=== PATIENT | male | born 1950 | race Caucasian/White ===

== ENCOUNTER 2020-05-14 14:44 | Inpatient (IN) | payer OTHER ==
[2020-05-14 16:25] LABS: BASO % 0.2 % (0-2.0); EOS % 0.1 % (0-4.5); HEMATOCRIT 19.1 % (35.4-49); LYMPH % 5.2 % (8-40); MCH 28.3 pg (25.7-33.7); MCHC 33.6 g/dl (32.0-35.9); MEAN CELL VOLUME 84.2 fl (80-96); MEAN PLT VOLUME 6.9 fl (7.5-11.1); NEUT % 89.5 % (42.8-82.8); PLATELET COUNT 249 K/MM3 (134-434); RBC 2.27 M/mm3 (4.00-5.60); WHITE BLOOD COUNT 8.9 K/mm3 (4.0-10.0)
[2020-05-14 16:31] LABS: HEMOGLOBIN 6.4 GM/dL (11.7-16.9); INR 1.14 (0.83-1.09)
[2020-05-14 16:34] LABS: ACTIVATED PTT 26.7 SECONDS (25.2-36.5)
[2020-05-14 16:36] LABS: VENOUS BASE EXCESS -1.4 mmol/L (-2-2); VENOUS O2 SATURATION 41.7 % (70-80); VENOUS PH 7.348 (7.310-7.410)
[2020-05-14 16:50] LABS: CALCIUM 8.6 mg/dL (8.5-10.1)
[2020-05-14 16:51] LABS: ALBUMIN 3.2 g/dl (3.4-5.0); BLOOD UREA NITROGEN 41.2 mg/dL (7-18); CO2 26 mmol/L (21-32); GLUCOSE,RANDOM 115 mg/dL (74-106)
[2020-05-14 16:52] LABS: ANION GAP 6 MMOL/L (8-16); CHLORIDE 112 mmol/L (98-107); POTASSIUM 4.2 mmol/L (3.5-5.1); SODIUM 145 mmol/L (136-145)
[2020-05-14 16:53] LABS: BILIRUBIN,DIRECT 0.2 mg/dL (0.0-0.2)
[2020-05-14 16:54] LABS: SGOT/AST 19 U/L (15-37); SGPT/ALT 10 U/L (13-61)
[2020-05-14 16:55] LABS: BILIRUBIN,TOTAL 0.6 mg/dL (0.2-1); LDH 288 U/L (87-246); TOT PROT 6.8 g/dl (6.4-8.2)
[2020-05-14 16:57] LABS: ALK PHOS 51 U/L (45-117)
[2020-05-14 20:51] LABS: N-TERMINAL BNP 2432.4 pg/ml (5-125)
[2020-05-14] MEDS ORDERED: VANCOMYCIN 1 GM in D5W (PRE-DOCKED) 1,000 MG/250 ML IVPB SCH (21:45)
[2020-05-14] MEDS: DEXAMETHASONE SOD PHOSPHATE 10 MG/1 ML VIAL IVPUSH SCH (22:05)
[2020-05-14] MEDS: PANTOPRAZOLE SODIUM 40 MG VIAL IVPUSH SCH (22:06)
[2020-05-14] MEDS: VANCOMYCIN 1 GM in D5W (PRE-DOCKED) 1,000 MG/250 ML IVPB SCH ×2 (22:06→22:50)
[2020-05-14] MEDS: MUPIROCIN 2% TOPICAL OINTMENT FOR DECOLONIZATION NS SCH (22:51)
[2020-05-14] MEDS: CHLORHEXIDINE GLUCONATE 4% CLEANSER FOR DECOLONIZATION TP SCH (22:51)
[2020-05-14 23:42] LABS: RETICULOCYTES 3.86 % (0.5-1.5)
[2020-05-15] MEDS ORDERED: FUROSEMIDE 40 MG/4 ML INJECTABLE VIAL IVPUSH ONE (00:12)
[2020-05-15] MEDS ORDERED: PIPERACILLIN/TAZOB 3.375 GM 3.375 GM in DEXTROSE 5%-WATER - 50 ML IVPB SCH (02:00)
[2020-05-15] MEDS ORDERED: PIPERACILLIN/TAZOBACTAM 3.375 GM VIAL IVPB ONE ×3 (02:12→16:29)
[2020-05-15] MEDS ORDERED: DEXTROSE 5%-WATER - 50 ML IVPB ONE ×3 (02:13→16:29)
[2020-05-15] MEDS: PIPERACILLIN/TAZOB 3.375 GM 3.375 GM in DEXTROSE 5%-WATER - 50 ML IVPB SCH ×3 (02:15→18:31)
[2020-05-15 02:18] LABS: EPI CELLS 11 /uL (0-25.1); HYALINE CASTS 1 /uL (0-3.1); URINE APPEARANCE CLEAR; URINE BACTERIA 73 /uL (0-1359); URINE BILIRUBIN NEGATIVE (NEGATIVE); URINE COLOR YELLOW; URINE GLUCOSE (UA) NEGATIVE (NEGATIVE); URINE KETONE NEGATIVE (NEGATIVE); URINE LEUK ESTERASE TRACE (NEGATIVE); URINE NITRITE NEGATIVE (NEGATIVE); URINE PROTEIN NEGATIVE (NEGATIVE); URINE RBC 6 /uL (0-23.9); URINE UROBILINOGEN 0.2 mg/dL (0.2-1.0); URINE WBC 23 /uL (0-25.8)
[2020-05-15 02:42] LABS: IRON SERUM 24 ug/dL (50-175); TOTAL IRON BINDING CAPACITY 303 ug/dL (250-450)
[2020-05-15 06:39] LABS: BASO % 0.1 % (0-2.0); HEMATOCRIT 24.8 % (35.4-49); HEMOGLOBIN 8.4 GM/dL (11.7-16.9); LYMPH % 4.2 % (8-40); MCH 28.6 pg (25.7-33.7); MEAN CELL VOLUME 84.3 fl (80-96); MEAN PLT VOLUME 7.8 fl (7.5-11.1); MONO % 4.5 % (3.8-10.2); NEUT % 91.2 % (42.8-82.8); PLATELET COUNT 202 K/MM3 (134-434); RBC 2.95 M/mm3 (4.00-5.60); RDW 14.9 % (11.9-15.9); WHITE BLOOD COUNT 8.8 K/mm3 (4.0-10.0)
[2020-05-15 06:44] LABS: INR 1.13 (0.83-1.09); PROTHROMBIN TIME (PATIENT) 13.8 SEC (9.7-13.0)
[2020-05-15 06:46] LABS: ACTIVATED PTT 24.1 SECONDS (25.2-36.5)
[2020-05-15 06:59] LABS: POTASSIUM 4.4 mmol/L (3.5-5.1)
[2020-05-15 07:02] LABS: BLOOD UREA NITROGEN 40.6 mg/dL (7-18); MAGNESIUM 2.4 mg/dL (1.8-2.4)
[2020-05-15 07:05] LABS: PHOSPHOROUS 4.2 mg/dL (2.5-4.9)
[2020-05-15 07:06] LABS: CREATININE 1.2 mg/dL (0.55-1.3)
[2020-05-15 07:07] LABS: BILIRUBIN,TOTAL 0.8 mg/dL (0.2-1); TOT PROT 6.6 g/dl (6.4-8.2)
[2020-05-15 08:28] LABS: ANISOCYTOSIS 2+; MACROCYTOSIS 0; PLATELET ESTIMATE NORMAL
[2020-05-15] MEDS: DEXAMETHASONE SOD PHOSPHATE 10 MG/1 ML VIAL IVPUSH SCH (09:56)
[2020-05-15] MEDS: PANTOPRAZOLE SODIUM 40 MG VIAL IVPUSH SCH ×2 (09:56→21:46)
[2020-05-15] MEDS: MUPIROCIN 2% TOPICAL OINTMENT FOR DECOLONIZATION NS SCH ×2 (09:56→21:46)
[2020-05-15 16:05] LABS: BASO % 0.4 % (0-2.0); HEMATOCRIT 24.2 % (35.4-49); HEMOGLOBIN 8.1 GM/dL (11.7-16.9); LYMPH % 2.9 % (8-40); MCH 27.9 pg (25.7-33.7); MCHC 33.5 g/dl (32.0-35.9); MEAN CELL VOLUME 83.2 fl (80-96); MONO % 3.6 % (3.8-10.2); NEUT % 93.1 % (42.8-82.8); RBC 2.91 M/mm3 (4.00-5.60); RDW 15.1 % (11.9-15.9); WHITE BLOOD COUNT 11.5 K/mm3 (4.0-10.0)
[2020-05-15 17:23] LABS: ANISOCYTOSIS 1+; MACROCYTOSIS 1+; PLATELET ESTIMATE DECREASED
[2020-05-15] MEDS: CHLORHEXIDINE GLUCONATE 4% CLEANSER FOR DECOLONIZATION TP SCH (21:47)
[2020-05-16] MEDS ORDERED: PIPERACILLIN/TAZOBACTAM 3.375 GM VIAL IVPB ONE ×4 (02:14→20:39)
[2020-05-16] MEDS ORDERED: DEXTROSE 5%-WATER - 50 ML IVPB ONE ×4 (02:15→20:39)
[2020-05-16] MEDS: PIPERACILLIN/TAZOB 3.375 GM 3.375 GM in DEXTROSE 5%-WATER - 50 ML IVPB SCH ×3 (02:15→18:10)
[2020-05-16 07:19] LABS: BASO % 0.1 % (0-2.0); EOS % 0.1 % (0-4.5); HEMATOCRIT 21.8 % (35.4-49); HEMOGLOBIN 7.5 GM/dL (11.7-16.9); LYMPH % 5.4 % (8-40); MCHC 34.3 g/dl (32.0-35.9); MEAN CELL VOLUME 84.6 fl (80-96); MEAN PLT VOLUME 6.8 fl (7.5-11.1); NEUT % 86.4 % (42.8-82.8); PLATELET COUNT 249 K/MM3 (134-434); RBC 2.57 M/mm3 (4.00-5.60); RDW 15.4 % (11.9-15.9); WHITE BLOOD COUNT 10.7 K/mm3 (4.0-10.0)
[2020-05-16 07:30] LABS: INR 1.1 (0.83-1.09); PROTHROMBIN TIME (PATIENT) 13.3 SEC (9.7-13.0)
[2020-05-16 07:33] LABS: ACTIVATED PTT 23.4 SECONDS (25.2-36.5)
[2020-05-16 07:41] LABS: POTASSIUM 4.3 mmol/L (3.5-5.1)
[2020-05-16 07:46] LABS: BLOOD UREA NITROGEN 48.9 mg/dL (7-18); CALCIUM 8.9 mg/dL (8.5-10.1); MAGNESIUM 2.4 mg/dL (1.8-2.4)
[2020-05-16 07:50] LABS: CREATININE 1.2 mg/dL (0.55-1.3)
[2020-05-16 07:51] LABS: BILIRUBIN,TOTAL 0.8 mg/dL (0.2-1); PHOSPHOROUS 4.5 mg/dL (2.5-4.9); TOT PROT 6.4 g/dl (6.4-8.2)
[2020-05-16] MEDS ORDERED: PT OWN MED DRAWER 7, Y5N ONE (08:08)
[2020-05-16] MEDS: FUROSEMIDE 40 MG/4 ML INJECTABLE VIAL IVPUSH SCH (09:10)
[2020-05-16] MEDS: MUPIROCIN 2% TOPICAL OINTMENT FOR DECOLONIZATION NS SCH ×2 (09:10→21:00)
[2020-05-16] MEDS: PANTOPRAZOLE SODIUM 40 MG VIAL IVPUSH SCH ×2 (09:10→21:00)
[2020-05-16 12:58] LABS: BF WBC & OTHER NUCLEATED CELLS 4072 /mm3
[2020-05-16 15:36] VITALS: BMI 43.0
[2020-05-16 15:54] LABS: BASO % 0.3 % (0-2.0); EOS % 1.7 % (0-4.5); HEMATOCRIT 22.8 % (35.4-49); HEMOGLOBIN 7.4 GM/dL (11.7-16.9); LYMPH % 6.8 % (8-40); MCH 28.4 pg (25.7-33.7); MCHC 32.5 g/dl (32.0-35.9); MEAN CELL VOLUME 87.5 fl (80-96); MEAN PLT VOLUME 7.4 fl (7.5-11.1); MONO % 8.5 % (3.8-10.2); NEUT % 82.7 % (42.8-82.8); PLATELET COUNT 240 K/MM3 (134-434); RDW 15.6 % (11.9-15.9); WHITE BLOOD COUNT 9.6 K/mm3 (4.0-10.0)
[2020-05-16] MEDS: CHLORHEXIDINE GLUCONATE 4% CLEANSER FOR DECOLONIZATION TP SCH (21:00)
[2020-05-17] MEDS: PIPERACILLIN/TAZOB 3.375 GM 3.375 GM in DEXTROSE 5%-WATER - 50 ML IVPB SCH ×3 (01:28→17:46)
[2020-05-17 07:16] LABS: BASO % 0.2 % (0-2.0); EOS % 4.3 % (0-4.5); HEMATOCRIT 23.5 % (35.4-49); HEMOGLOBIN 7.7 GM/dL (11.7-16.9); LYMPH % 6.8 % (8-40); MCH 28.5 pg (25.7-33.7); MCHC 32.9 g/dl (32.0-35.9); MEAN CELL VOLUME 86.6 fl (80-96); MEAN PLT VOLUME 7.3 fl (7.5-11.1); MONO % 8.8 % (3.8-10.2); NEUT % 79.9 % (42.8-82.8); PLATELET COUNT 228 K/MM3 (134-434); RBC 2.72 M/mm3 (4.00-5.60); RDW 15.8 % (11.9-15.9); WHITE BLOOD COUNT 8.8 K/mm3 (4.0-10.0)
[2020-05-17 07:36] LABS: POTASSIUM 3.7 mmol/L (3.5-5.1)
[2020-05-17 07:56] LABS: ALBUMIN 2.8 g/dl (3.4-5.0); BLOOD UREA NITROGEN 57.1 mg/dL (7-18); CALCIUM 8.5 mg/dL (8.5-10.1); MAGNESIUM 2.3 mg/dL (1.8-2.4)
[2020-05-17 07:59] LABS: PHOSPHOROUS 3.6 mg/dL (2.5-4.9)
[2020-05-17 08:00] LABS: CREATININE 1.4 mg/dL (0.55-1.3)
[2020-05-17 08:02] LABS: BILIRUBIN,TOTAL 0.9 mg/dL (0.2-1)
[2020-05-17] MEDS ORDERED: LACTATED RINGERS SOLUTION 1000 ML INFUS.BAG IV ONE (08:07)
[2020-05-17] MEDS ORDERED: DEXTROSE 5%-WATER - 50 ML IVPB ONE ×2 (09:35→17:44)
[2020-05-17] MEDS ORDERED: PIPERACILLIN/TAZOBACTAM 3.375 GM VIAL IVPB ONE ×2 (09:35→17:44)
[2020-05-17] MEDS ORDERED: PT OWN MED DRAWER 7, Y5N ONE (09:35)
[2020-05-17] MEDS: PANTOPRAZOLE SODIUM 40 MG VIAL IVPUSH SCH (09:43)
[2020-05-17] MEDS: FENOFIBRIC ACID 45 MG CAP PO SCH (09:44)
[2020-05-17] MEDS: MUPIROCIN 2% TOPICAL OINTMENT FOR DECOLONIZATION NS SCH ×2 (10:27→23:42)
[2020-05-17] MEDS: FUROSEMIDE 40 MG/4 ML INJECTABLE VIAL IVPUSH SCH (13:34)
[2020-05-17] MEDS ORDERED: NOREPINEPHRINE BITARTRATE 16,000 MCG in SODIUM CHLORIDE 484 ML IV SCH (13:45)
[2020-05-17] MEDS ORDERED: NOREPINEPHRINE BITARTRATE 4 MG/4 ML ML IV ONE (14:02)
[2020-05-17 14:07] LABS: BODY FLUID ALBUMIN 2.2 g/dL (Not Estab.)
[2020-05-17] MEDS: methylPREDNISolone NA SUCC 40 MG/1 ML VIAL IVPUSH SCH ×2 (14:26→23:07)
[2020-05-17 14:42] LABS: ALLENS TEST POSITIVE; ARTERIAL BLD GAS O2 SATURATION 96.6 mmHg (95-98); ARTERIAL BLOOD GAS BASE EXCESS -3.2 mmol/L (-2-2); ARTERIAL BLOOD GAS PO2 87.3 mmHg (80-100); ARTERIAL BLOOD GAS pH 7.381 (7.350-7.450)
[2020-05-17 14:43] LABS: VENT MODE PCV
[2020-05-17] MEDS ORDERED: MIDAZOLAM HCL 2 MG/2 ML SINGLE DOSE VIAL IVPUSH ONE (15:33)
[2020-05-17] MEDS ORDERED: MIDAZOLAM HCL 2 MG/2 ML SINGLE DOSE VIAL ONE (15:44)
[2020-05-17] MEDS: NOREPINEPHRINE BITARTRATE 4,000 MCG in DEXTROSE 5%-WATER - 496 ML IV SCH (16:30)
[2020-05-17 19:16] LABS: BF WBC & OTHER NUCLEATED CELLS 4429 /mm3
[2020-05-17 20:37] LABS: BASO % 0.1 % (0-2.0); HEMATOCRIT 26.1 % (35.4-49); HEMOGLOBIN 8.6 GM/dL (11.7-16.9); MCH 28.7 pg (25.7-33.7); MCHC 32.9 g/dl (32.0-35.9); MEAN CELL VOLUME 87.2 fl (80-96); MEAN PLT VOLUME 7.6 fl (7.5-11.1); MONO % 3.4 % (3.8-10.2); NEUT % 94.5 % (42.8-82.8); PLATELET COUNT 243 K/MM3 (134-434); RDW 15.6 % (11.9-15.9)
[2020-05-17 21:10] LABS: BODY FLUID MACROPHAGES 2 %; BODY FLUID MONOCYTE 10 %; BODYL FLD EOSINOPHIL 5 %
[2020-05-17 21:27] LABS: ANISOCYTOSIS 1+; OVALOCYTE 1+; PLATELET ESTIMATE ADEQUATE
[2020-05-17] MEDS: CHLORHEXIDINE GLUCONATE 4% CLEANSER FOR DECOLONIZATION TP SCH (23:42)
[2020-05-18] MEDS ORDERED: PIPERACILLIN/TAZOBACTAM 3.375 GM VIAL IVPB ONE ×2 (03:22→09:00)
[2020-05-18] MEDS ORDERED: DEXTROSE 5%-WATER - 50 ML IVPB ONE ×2 (03:23→09:00)
[2020-05-18] MEDS: PIPERACILLIN/TAZOB 3.375 GM 3.375 GM in DEXTROSE 5%-WATER - 50 ML IVPB SCH ×2 (03:25→09:05)
[2020-05-18] MEDS: methylPREDNISolone NA SUCC 40 MG/1 ML VIAL IVPUSH SCH ×4 (04:22→21:34)
[2020-05-18 07:13] LABS: BASO % 0.1 % (0-2.0); HEMOGLOBIN 8.3 GM/dL (11.7-16.9); LYMPH % 3.4 % (8-40); MCH 29.7 pg (25.7-33.7); MCHC 34.6 g/dl (32.0-35.9); MEAN CELL VOLUME 85.7 fl (80-96); MEAN PLT VOLUME 7.5 fl (7.5-11.1); MONO % 2.8 % (3.8-10.2); NEUT % 93.7 % (42.8-82.8); PLATELET COUNT 258 K/MM3 (134-434); RDW 15.4 % (11.9-15.9)
[2020-05-18 07:18] LABS: INR 1.09 (0.83-1.09); PROTHROMBIN TIME (PATIENT) 13.2 SEC (9.7-13.0)
[2020-05-18 07:19] LABS: ACTIVATED PTT 23.5 SECONDS (25.2-36.5)
[2020-05-18 07:41] LABS: POTASSIUM 4.6 mmol/L (3.5-5.1)
[2020-05-18 07:43] LABS: ALBUMIN 2.7 g/dl (3.4-5.0); CALCIUM 8.4 mg/dL (8.5-10.1)
[2020-05-18 07:44] LABS: BLOOD UREA NITROGEN 69.6 mg/dL (7-18); MAGNESIUM 2.6 mg/dL (1.8-2.4)
[2020-05-18 07:47] LABS: CREATININE 1.8 mg/dL (0.55-1.3); PHOSPHOROUS 5.2 mg/dL (2.5-4.9)
[2020-05-18 07:48] LABS: BILIRUBIN,TOTAL 0.9 mg/dL (0.2-1); TOT PROT 6.3 g/dl (6.4-8.2)
[2020-05-18] MEDS ORDERED: PT OWN MED DRAWER 7, Y5N ONE (09:00)
[2020-05-18] MEDS: MUPIROCIN 2% TOPICAL OINTMENT FOR DECOLONIZATION NS SCH ×2 (09:04→21:40)
[2020-05-18] MEDS: PANTOPRAZOLE SODIUM 40 MG VIAL IVPUSH SCH (09:05)
[2020-05-18] MEDS: FENOFIBRIC ACID 45 MG CAP PO SCH (09:05)
[2020-05-18 09:24] LABS: ANISOCYTOSIS 0; MACROCYTOSIS 0; PLATELET ESTIMATE NORMAL
[2020-05-18] MEDS ORDERED: LACTATED RINGERS SOLUTION 1,000 ML/1,000 ML INFUS.BAG IV SCH (12:30)
[2020-05-18] MEDS: NOREPINEPHRINE BITARTRATE 4,000 MCG in DEXTROSE 5%-WATER - 496 ML IV SCH (14:36)
[2020-05-18] MEDS ORDERED: AMPICILLIN NA/SULBACTAM NA 1.5 GM VIAL ONE (17:37)
[2020-05-18] MEDS ORDERED: SODIUM CHLORIDE 100 ML IVPB ONE (17:38)
[2020-05-18] MEDS: AMPICILLIN NA/SULBACTAM NA 1.5 GM in SODIUM CHLORIDE 100 ML IVPB SCH (17:54)
[2020-05-18] MEDS: CHLORHEXIDINE GLUCONATE 4% CLEANSER FOR DECOLONIZATION TP SCH (21:40)
[2020-05-19] MEDS ORDERED: LACTATED RINGERS SOLUTION 1,000 ML/1,000 ML INFUS.BAG IV SCH
[2020-05-19] MEDS ORDERED: PT OWN MED DRAWER 7, Y5N ONE ×3 (03:33→14:51)
[2020-05-19] MEDS ORDERED: AMPICILLIN NA/SULBACTAM NA 1.5 GM VIAL ONE (03:42)
[2020-05-19] MEDS ORDERED: SODIUM CHLORIDE 100 ML IVPB ONE (03:43)
[2020-05-19] MEDS: AMPICILLIN NA/SULBACTAM NA 1.5 GM in SODIUM CHLORIDE 100 ML IVPB SCH (03:44)
[2020-05-19] MEDS: methylPREDNISolone NA SUCC 40 MG/1 ML VIAL IVPUSH SCH ×2 (04:31→09:52)
[2020-05-19 06:51] LABS: BASO % 0.1 % (0-2.0); HEMATOCRIT 21.2 % (35.4-49); HEMOGLOBIN 7.1 GM/dL (11.7-16.9); LYMPH % 2.3 % (8-40); MCH 29.1 pg (25.7-33.7); MCHC 33.6 g/dl (32.0-35.9); MEAN CELL VOLUME 86.5 fl (80-96); MEAN PLT VOLUME 7.4 fl (7.5-11.1); MONO % 4.6 % (3.8-10.2); PLATELET COUNT 231 K/MM3 (134-434); RBC 2.45 M/mm3 (4.00-5.60); RDW 16.1 % (11.9-15.9); WHITE BLOOD COUNT 8.9 K/mm3 (4.0-10.0)
[2020-05-19 07:09] LABS: POTASSIUM 4.3 mmol/L (3.5-5.1)
[2020-05-19 07:15] LABS: ALBUMIN 2.4 g/dl (3.4-5.0); BLOOD UREA NITROGEN 65.3 mg/dL (7-18); CALCIUM 8.5 mg/dL (8.5-10.1); MAGNESIUM 2.5 mg/dL (1.8-2.4)
[2020-05-19 07:17] LABS: CREATININE 1.3 mg/dL (0.55-1.3)
[2020-05-19 07:18] LABS: PHOSPHOROUS 3.8 mg/dL (2.5-4.9)
[2020-05-19 07:19] LABS: BILIRUBIN,TOTAL 0.9 mg/dL (0.2-1); TOT PROT 5.5 g/dl (6.4-8.2)
[2020-05-19] MEDS ORDERED: AMPICILLIN NA/SULBACTAM NA 3 GM in SODIUM CHLORIDE 100 ML IVPB SCH ×2 (09:30→10:00)
[2020-05-19] MEDS: MUPIROCIN 2% TOPICAL OINTMENT FOR DECOLONIZATION NS SCH ×2 (09:52→21:03)
[2020-05-19] MEDS: FENOFIBRIC ACID 45 MG CAP PO SCH (09:52)
[2020-05-19] MEDS: PANTOPRAZOLE SODIUM 40 MG VIAL IVPUSH SCH (09:52)
[2020-05-19] MEDS: AMPICILLIN NA/SULBACTAM NA 3 GM in SODIUM CHLORIDE 100 ML IVPB SCH ×2 (15:49→21:02)
[2020-05-19] MEDS: CHLORHEXIDINE GLUCONATE 4% CLEANSER FOR DECOLONIZATION TP SCH (21:02)
[2020-05-19] MEDS: methylPREDNISolone NA SUCC 125 MG/2 ML VIAL IVPUSH SCH (21:02)
[2020-05-19] MEDS ORDERED: methylPREDNISolone NA SUCC 40 MG/1 ML VIAL IVPUSH SCH (22:00)
[2020-05-20] MEDS ORDERED: amLODIPine BESYLATE 10 MG TABLET (FP) PO SCH (00:45)
[2020-05-20] MEDS: AMPICILLIN NA/SULBACTAM NA 3 GM in SODIUM CHLORIDE 100 ML IVPB SCH ×4 (02:23→22:00)
[2020-05-20 06:54] LABS: POTASSIUM 4.5 mmol/L (3.5-5.1)
[2020-05-20 06:55] LABS: CALCIUM 8.7 mg/dL (8.5-10.1)
[2020-05-20 06:57] LABS: BLOOD UREA NITROGEN 60.4 mg/dL (7-18)
[2020-05-20 07:00] LABS: CREATININE 1.1 mg/dL (0.55-1.3)
[2020-05-20] MEDS ORDERED: PT OWN MED DRAWER 7, Y5N ONE ×2 (09:35→21:58)
[2020-05-20] MEDS: FENOFIBRIC ACID 45 MG CAP PO SCH (10:04)
[2020-05-20] MEDS: methylPREDNISolone NA SUCC 125 MG/2 ML VIAL IVPUSH SCH (10:08)
[2020-05-20] MEDS: PANTOPRAZOLE SODIUM 40 MG VIAL IVPUSH SCH (10:08)
[2020-05-20] MEDS: MUPIROCIN 2% TOPICAL OINTMENT FOR DECOLONIZATION NS SCH ×2 (10:08→22:03)
[2020-05-20 20:29] LABS: HEMATOCRIT 26.7 % (35.4-49); HEMOGLOBIN 8.9 GM/dL (11.7-16.9); MCH 29.1 pg (25.7-33.7); MCHC 33.3 g/dl (32.0-35.9); MEAN CELL VOLUME 87.2 fl (80-96); MEAN PLT VOLUME 7.3 fl (7.5-11.1); PLATELET COUNT 260 K/MM3 (134-434); RBC 3.06 M/mm3 (4.00-5.60); WHITE BLOOD COUNT 10.3 K/mm3 (4.0-10.0)
[2020-05-20] MEDS: CHLORHEXIDINE GLUCONATE 4% CLEANSER FOR DECOLONIZATION TP SCH (22:03)
[2020-05-21 00:06] LABS: BODY FLUID ALBUMIN 2.5 g/dL (Not Estab.)
[2020-05-21] MEDS: AMPICILLIN NA/SULBACTAM NA 3 GM in SODIUM CHLORIDE 100 ML IVPB SCH ×4 (03:05→21:29)
[2020-05-21 07:20] LABS: BASO % 0.1 % (0-2.0); EOS % 0.5 % (0-4.5); HEMATOCRIT 24.9 % (35.4-49); HEMOGLOBIN 8.3 GM/dL (11.7-16.9); LYMPH % 5.5 % (8-40); MCH 29.3 pg (25.7-33.7); MCHC 33.6 g/dl (32.0-35.9); MEAN CELL VOLUME 87.3 fl (80-96); MEAN PLT VOLUME 7.4 fl (7.5-11.1); MONO % 8.3 % (3.8-10.2); NEUT % 85.6 % (42.8-82.8); PLATELET COUNT 236 K/MM3 (134-434); RBC 2.85 M/mm3 (4.00-5.60); RDW 15.8 % (11.9-15.9); WHITE BLOOD COUNT 9.1 K/mm3 (4.0-10.0)
[2020-05-21 07:48] LABS: POTASSIUM 4.1 mmol/L (3.5-5.1)
[2020-05-21 07:59] LABS: ALBUMIN 2.5 g/dl (3.4-5.0); BLOOD UREA NITROGEN 53.2 mg/dL (7-18); CALCIUM 8.5 mg/dL (8.5-10.1)
[2020-05-21 08:00] LABS: MAGNESIUM 2.2 mg/dL (1.8-2.4); PHOSPHOROUS 2.7 mg/dL (2.5-4.9)
[2020-05-21 08:02] LABS: BILIRUBIN,TOTAL 0.8 mg/dL (0.2-1); TOT PROT 5.5 g/dl (6.4-8.2)
[2020-05-21] MEDS: amLODIPine BESYLATE 5 MG TABLET (FP) PO SCH (09:36)
[2020-05-21] MEDS: methylPREDNISolone NA SUCC 125 MG/2 ML VIAL IVPUSH SCH (09:36)
[2020-05-21] MEDS: PANTOPRAZOLE SODIUM 40 MG VIAL IVPUSH SCH (09:36)
[2020-05-21] MEDS: FENOFIBRIC ACID 45 MG CAP PO SCH (09:37)
[2020-05-21] MEDS: MUPIROCIN 2% TOPICAL OINTMENT FOR DECOLONIZATION NS SCH ×2 (09:37→21:44)
[2020-05-21 10:13] LABS: BODY FLUID MONOCYTE 8 %; BODYL FLD EOSINOPHIL 2 %
[2020-05-21] MEDS: ATENOLOL 25 MG TABLET (FP) PO SCH (10:45)
[2020-05-21] MEDS ORDERED: PT OWN MED DRAWER 7, Y5N ONE ×2 (15:55→21:27)
[2020-05-21] MEDS: CHLORHEXIDINE GLUCONATE 4% CLEANSER FOR DECOLONIZATION TP SCH (21:44)
[2020-05-22] MEDS ORDERED: PT OWN MED DRAWER 7, Y5N ONE ×3 (03:15→14:28)
[2020-05-22] MEDS: AMPICILLIN NA/SULBACTAM NA 3 GM in SODIUM CHLORIDE 100 ML IVPB SCH ×4 (03:17→21:20)
[2020-05-22 07:06] LABS: EOS % 0.6 % (0-4.5); HEMATOCRIT 23.6 % (35.4-49); LYMPH % 5.9 % (8-40); MCH 29.3 pg (25.7-33.7); MEAN CELL VOLUME 86.3 fl (80-96); MEAN PLT VOLUME 7.1 fl (7.5-11.1); MONO % 6.8 % (3.8-10.2); NEUT % 86.7 % (42.8-82.8); PLATELET COUNT 235 K/MM3 (134-434); RBC 2.73 M/mm3 (4.00-5.60); RDW 15.5 % (11.9-15.9); WHITE BLOOD COUNT 8.8 K/mm3 (4.0-10.0)
[2020-05-22 07:35] LABS: POTASSIUM 4.3 mmol/L (3.5-5.1)
[2020-05-22 07:37] LABS: BLOOD UREA NITROGEN 48.5 mg/dL (7-18); CALCIUM 8.4 mg/dL (8.5-10.1)
[2020-05-22 07:38] LABS: ALBUMIN 2.5 g/dl (3.4-5.0); MAGNESIUM 2.2 mg/dL (1.8-2.4)
[2020-05-22 07:42] LABS: CREATININE 0.9 mg/dL (0.55-1.3); PHOSPHOROUS 2.8 mg/dL (2.5-4.9); TOT PROT 5.4 g/dl (6.4-8.2)
[2020-05-22] MEDS: FENOFIBRIC ACID 45 MG CAP PO SCH (09:04)
[2020-05-22] MEDS: PANTOPRAZOLE SODIUM 40 MG VIAL IVPUSH SCH (09:05)
[2020-05-22] MEDS: ATENOLOL 25 MG TABLET (FP) PO SCH (09:05)
[2020-05-22] MEDS: amLODIPine BESYLATE 5 MG TABLET (FP) PO SCH (09:05)
[2020-05-22] MEDS: MUPIROCIN 2% TOPICAL OINTMENT FOR DECOLONIZATION NS SCH ×2 (09:07→21:20)
[2020-05-22] MEDS: methylPREDNISolone NA SUCC 125 MG/2 ML VIAL IVPUSH SCH (09:07)
[2020-05-22] MEDS: HEPARIN NA (PORCINE) 5,000 UNITS/ML 1ML VIAL SQ SCH ×2 (15:05→21:20)
[2020-05-22] MEDS: CHLORHEXIDINE GLUCONATE 4% CLEANSER FOR DECOLONIZATION TP SCH (21:21)
[2020-05-23] MEDS ORDERED: PT OWN MED DRAWER 7, Y5N ONE ×6 (01:40→21:27)
[2020-05-23] MEDS: AMPICILLIN NA/SULBACTAM NA 3 GM in SODIUM CHLORIDE 100 ML IVPB SCH ×4 (02:10→21:29)
[2020-05-23] MEDS: HEPARIN NA (PORCINE) 5,000 UNITS/ML 1ML VIAL SQ SCH (06:54)
[2020-05-23 07:24] LABS: BASO % 0.1 % (0-2.0); EOS % 0.7 % (0-4.5); HEMATOCRIT 21.8 % (35.4-49); HEMOGLOBIN 7.5 GM/dL (11.7-16.9); LYMPH % 7.7 % (8-40); MCH 29.8 pg (25.7-33.7); MCHC 34.3 g/dl (32.0-35.9); MEAN CELL VOLUME 86.8 fl (80-96); MONO % 6.5 % (3.8-10.2); PLATELET COUNT 206 K/MM3 (134-434); RBC 2.52 M/mm3 (4.00-5.60); RDW 15.6 % (11.9-15.9); WHITE BLOOD COUNT 8.3 K/mm3 (4.0-10.0)
[2020-05-23 07:38] LABS: POTASSIUM 4.2 mmol/L (3.5-5.1)
[2020-05-23 07:45] LABS: ALBUMIN 2.4 g/dl (3.4-5.0); BLOOD UREA NITROGEN 49.6 mg/dL (7-18); CALCIUM 8.6 mg/dL (8.5-10.1); MAGNESIUM 2.2 mg/dL (1.8-2.4)
[2020-05-23 07:51] LABS: BILIRUBIN,TOTAL 0.7 mg/dL (0.2-1); TOT PROT 5.3 g/dl (6.4-8.2)
[2020-05-23] MEDS: methylPREDNISolone NA SUCC 125 MG/2 ML VIAL IVPUSH SCH (10:07)
[2020-05-23] MEDS: PANTOPRAZOLE SODIUM 40 MG VIAL IVPUSH SCH (10:07)
[2020-05-23] MEDS: MUPIROCIN 2% TOPICAL OINTMENT FOR DECOLONIZATION NS SCH ×2 (10:08→21:32)
[2020-05-23] MEDS: ATENOLOL 25 MG TABLET (FP) PO SCH (10:08)
[2020-05-23] MEDS: FENOFIBRIC ACID 45 MG CAP PO SCH ×2 (14:20→17:42)
[2020-05-23] MEDS: CHLORHEXIDINE GLUCONATE 4% CLEANSER FOR DECOLONIZATION TP SCH (21:32)
[2020-05-24] MEDS ORDERED: PT OWN MED DRAWER 7, Y5N ONE ×3 (02:03→20:49)
[2020-05-24] MEDS: AMPICILLIN NA/SULBACTAM NA 3 GM in SODIUM CHLORIDE 100 ML IVPB SCH ×4 (02:23→21:52)
[2020-05-24] MEDS: FENOFIBRIC ACID 45 MG CAP PO SCH (09:12)
[2020-05-24] MEDS: PANTOPRAZOLE SODIUM 40 MG VIAL IVPUSH SCH (09:12)
[2020-05-24] MEDS: methylPREDNISolone NA SUCC 125 MG/2 ML VIAL IVPUSH SCH (09:12)
[2020-05-24] MEDS: ATENOLOL 25 MG TABLET (FP) PO SCH (10:50)
[2020-05-24] MEDS: CYANOCOBALAMIN 1,000 MCG TABLET (FP) PO SCH (12:07)
[2020-05-24 13:30] LABS: EOS % 0.1 % (0-4.5); HEMATOCRIT 23.4 % (35.4-49); HEMOGLOBIN 7.5 GM/dL (11.7-16.9); LYMPH % 1.6 % (8-40); MCH 28.3 pg (25.7-33.7); MCHC 32.1 g/dl (32.0-35.9); MEAN CELL VOLUME 88.3 fl (80-96); MEAN PLT VOLUME 7.6 fl (7.5-11.1); NEUT % 95.3 % (42.8-82.8); PLATELET COUNT 270 K/MM3 (134-434); RBC 2.65 M/mm3 (4.00-5.60); RDW 16.1 % (11.9-15.9); WHITE BLOOD COUNT 11.8 K/mm3 (4.0-10.0)
[2020-05-24 13:44] LABS: POTASSIUM 4.7 mmol/L (3.5-5.1)
[2020-05-24 13:47] LABS: ALBUMIN 2.6 g/dl (3.4-5.0); BLOOD UREA NITROGEN 47.9 mg/dL (7-18); CALCIUM 8.7 mg/dL (8.5-10.1); MAGNESIUM 2.3 mg/dL (1.8-2.4)
[2020-05-24 13:51] LABS: PHOSPHOROUS 2.8 mg/dL (2.5-4.9)
[2020-05-24 13:52] LABS: BILIRUBIN,TOTAL 0.9 mg/dL (0.2-1); TOT PROT 5.6 g/dl (6.4-8.2)
[2020-05-24 14:10] LABS: ANISOCYTOSIS 2+; MACROCYTOSIS 0; PLATELET ESTIMATE NORMAL; TARGET CELLS 1+
[2020-05-24] MEDS ORDERED: TRIMETHOBENZAMIDE HCL 200MG/2ML INJ IM ONE (17:48)
[2020-05-25] MEDS: AMPICILLIN NA/SULBACTAM NA 3 GM in SODIUM CHLORIDE 100 ML IVPB SCH ×4 (02:09→21:29)
[2020-05-25 07:19] LABS: BASO % 0.2 % (0-2.0); EOS % 0.3 % (0-4.5); HEMOGLOBIN 7.4 GM/dL (11.7-16.9); LYMPH % 7.5 % (8-40); MCH 29.4 pg (25.7-33.7); MCHC 33.6 g/dl (32.0-35.9); MEAN CELL VOLUME 87.3 fl (80-96); MEAN PLT VOLUME 7.4 fl (7.5-11.1); MONO % 8.6 % (3.8-10.2); NEUT % 83.4 % (42.8-82.8); PLATELET COUNT 289 K/MM3 (134-434); RBC 2.52 M/mm3 (4.00-5.60); RDW 15.9 % (11.9-15.9)
[2020-05-25 07:39] LABS: POTASSIUM 4.8 mmol/L (3.5-5.1)
[2020-05-25 07:41] LABS: CALCIUM 8.9 mg/dL (8.5-10.1)
[2020-05-25 07:42] LABS: ALBUMIN 2.6 g/dl (3.4-5.0); BLOOD UREA NITROGEN 39.1 mg/dL (7-18); MAGNESIUM 2.1 mg/dL (1.8-2.4)
[2020-05-25 07:45] LABS: CREATININE 0.9 mg/dL (0.55-1.3); PHOSPHOROUS 2.4 mg/dL (2.5-4.9)
[2020-05-25 07:46] LABS: BILIRUBIN,TOTAL 1.5 mg/dL (0.2-1)
[2020-05-25 07:47] LABS: TOT PROT 5.6 g/dl (6.4-8.2)
[2020-05-25] MEDS ORDERED: PT OWN MED DRAWER 7, Y5N ONE ×3 (09:10→20:57)
[2020-05-25] MEDS: ATENOLOL 25 MG TABLET (FP) PO SCH (09:55)
[2020-05-25] MEDS: FENOFIBRIC ACID 45 MG CAP PO SCH (09:55)
[2020-05-25] MEDS: CYANOCOBALAMIN 1,000 MCG TABLET (FP) PO SCH (09:56)
[2020-05-25] MEDS: methylPREDNISolone NA SUCC 125 MG/2 ML VIAL IVPUSH SCH (09:56)
[2020-05-25] MEDS: PANTOPRAZOLE SODIUM 40 MG VIAL IVPUSH SCH (09:56)
[2020-05-25] MEDS ORDERED: SODIUM PHOSPHATE - 15 MM in DEXTROSE 5%-WATER - 250 ML IVPB ONE (10:00)
[2020-05-25] MEDS: AMINO ACIDS/PROTEIN HYDROLYS 30 ML LIQUID.PKT PO SCH (17:23)
[2020-05-26] MEDS: AMPICILLIN NA/SULBACTAM NA 3 GM in SODIUM CHLORIDE 100 ML IVPB SCH ×4 (02:33→20:20)
[2020-05-26 08:30] LABS: POTASSIUM 4.4 mmol/L (3.5-5.1)
[2020-05-26 08:54] LABS: CALCIUM 8.6 mg/dL (8.5-10.1)
[2020-05-26 08:55] LABS: ALBUMIN 2.4 g/dl (3.4-5.0); MAGNESIUM 2.1 mg/dL (1.8-2.4)
[2020-05-26 08:58] LABS: CREATININE 0.8 mg/dL (0.55-1.3); PHOSPHOROUS 2.5 mg/dL (2.5-4.9)
[2020-05-26 08:59] LABS: BILIRUBIN,TOTAL 0.8 mg/dL (0.2-1); TOT PROT 5.1 g/dl (6.4-8.2)
[2020-05-26] MEDS ORDERED: PT OWN MED DRAWER 7, Y5N ONE ×3 (09:16→20:11)
[2020-05-26] MEDS: CYANOCOBALAMIN 1,000 MCG TABLET (FP) PO SCH (09:28)
[2020-05-26] MEDS: AMINO ACIDS/PROTEIN HYDROLYS 30 ML LIQUID.PKT PO SCH ×2 (09:28→17:35)
[2020-05-26] MEDS: ATENOLOL 25 MG TABLET (FP) PO SCH (09:28)
[2020-05-26] MEDS: MULTIVITAMINS (DAILY MVI) TABLET (FP) PO SCH (09:28)
[2020-05-26] MEDS: methylPREDNISolone NA SUCC 125 MG/2 ML VIAL IVPUSH SCH (09:28)
[2020-05-26] MEDS: PANTOPRAZOLE SODIUM 40 MG VIAL IVPUSH SCH (09:28)
[2020-05-26] MEDS: FENOFIBRIC ACID 45 MG CAP PO SCH (09:29)
[2020-05-26 13:03] LABS: BASO % 0.7 % (0-2.0); EOS % 0.4 % (0-4.5); HEMATOCRIT 21.8 % (35.4-49); HEMOGLOBIN 7.1 GM/dL (11.7-16.9); MCH 28.9 pg (25.7-33.7); MCHC 32.6 g/dl (32.0-35.9); MEAN CELL VOLUME 88.4 fl (80-96); MEAN PLT VOLUME 8.1 fl (7.5-11.1); MONO % 0.7 % (3.8-10.2); NEUT % 96.2 % (42.8-82.8); PLATELET COUNT 219 K/MM3 (134-434); RBC 2.46 M/mm3 (4.00-5.60); RDW 15.9 % (11.9-15.9); WHITE BLOOD COUNT 10.6 K/mm3 (4.0-10.0)
[2020-05-26 13:32] LABS: ANISOCYTOSIS 1+; MACROCYTOSIS 0; PLATELET ESTIMATE NORMAL
[2020-05-27] MEDS: AMPICILLIN NA/SULBACTAM NA 3 GM in SODIUM CHLORIDE 100 ML IVPB SCH ×4 (03:16→21:16)
[2020-05-27 07:40] LABS: BASO % 0.2 % (0-2.0); EOS % 0.1 % (0-4.5); HEMATOCRIT 22.2 % (35.4-49); HEMOGLOBIN 7.7 GM/dL (11.7-16.9); LYMPH % 6.8 % (8-40); MCH 29.3 pg (25.7-33.7); MCHC 34.5 g/dl (32.0-35.9); MEAN CELL VOLUME 85.2 fl (80-96); MEAN PLT VOLUME 7.1 fl (7.5-11.1); MONO % 7.1 % (3.8-10.2); NEUT % 85.8 % (42.8-82.8); PLATELET COUNT 252 K/MM3 (134-434); RBC 2.61 M/mm3 (4.00-5.60); RDW 16.7 % (11.9-15.9); WHITE BLOOD COUNT 10.8 K/mm3 (4.0-10.0)
[2020-05-27 08:05] LABS: CALCIUM 8.5 mg/dL (8.5-10.1)
[2020-05-27 08:06] LABS: ALBUMIN 2.5 g/dl (3.4-5.0); BLOOD UREA NITROGEN 34.1 mg/dL (7-18)
[2020-05-27 08:09] LABS: CREATININE 0.9 mg/dL (0.55-1.3)
[2020-05-27 08:10] LABS: TOT PROT 5.2 g/dl (6.4-8.2)
[2020-05-27] MEDS ORDERED: PT OWN MED DRAWER 7, Y5N ONE ×3 (08:27→21:10)
[2020-05-27] MEDS: AMINO ACIDS/PROTEIN HYDROLYS 30 ML LIQUID.PKT PO SCH ×2 (08:32→17:14)
[2020-05-27] MEDS: FENOFIBRIC ACID 45 MG CAP PO SCH (09:19)
[2020-05-27] MEDS: methylPREDNISolone NA SUCC 125 MG/2 ML VIAL IVPUSH SCH (09:20)
[2020-05-27] MEDS: ATENOLOL 25 MG TABLET (FP) PO SCH (09:20)
[2020-05-27] MEDS: MULTIVITAMINS (DAILY MVI) TABLET (FP) PO SCH (09:20)
[2020-05-27] MEDS: CYANOCOBALAMIN 1,000 MCG TABLET (FP) PO SCH (09:20)
[2020-05-27] MEDS: PANTOPRAZOLE SODIUM 40 MG VIAL IVPUSH SCH (09:20)
[2020-05-28] MEDS ORDERED: PT OWN MED DRAWER 7, Y5N ONE ×5 (02:02→20:43)
[2020-05-28] MEDS: AMPICILLIN NA/SULBACTAM NA 3 GM in SODIUM CHLORIDE 100 ML IVPB SCH ×4 (02:14→20:53)
[2020-05-28 08:00] LABS: BASO % 0.2 % (0-2.0); EOS % 0.8 % (0-4.5); HEMATOCRIT 21.8 % (35.4-49); HEMOGLOBIN 7.5 GM/dL (11.7-16.9); LYMPH % 9.2 % (8-40); MCH 29.5 pg (25.7-33.7); MCHC 34.4 g/dl (32.0-35.9); MEAN CELL VOLUME 85.8 fl (80-96); MEAN PLT VOLUME 7.2 fl (7.5-11.1); MONO % 6.7 % (3.8-10.2); NEUT % 83.1 % (42.8-82.8); PLATELET COUNT 233 K/MM3 (134-434); RBC 2.54 M/mm3 (4.00-5.60); RDW 17.5 % (11.9-15.9); WHITE BLOOD COUNT 10.3 K/mm3 (4.0-10.0)
[2020-05-28 08:02] LABS: POTASSIUM 4.7 mmol/L (3.5-5.1)
[2020-05-28 08:04] LABS: CALCIUM 8.4 mg/dL (8.5-10.1)
[2020-05-28 08:08] LABS: CREATININE 0.9 mg/dL (0.55-1.3)
[2020-05-28] MEDS: AMINO ACIDS/PROTEIN HYDROLYS 30 ML LIQUID.PKT PO SCH ×2 (08:53→17:02)
[2020-05-28] MEDS: methylPREDNISolone NA SUCC 125 MG/2 ML VIAL IVPUSH SCH (09:35)
[2020-05-28] MEDS: PANTOPRAZOLE SODIUM 40 MG VIAL IVPUSH SCH (09:35)
[2020-05-28] MEDS ORDERED: TRIMETHOBENZAMIDE HCL 200MG/2ML INJ IM ONE (11:14)
[2020-05-28] MEDS: CYANOCOBALAMIN 1,000 MCG TABLET (FP) PO SCH (12:32)
[2020-05-28] MEDS: FENOFIBRIC ACID 45 MG CAP PO SCH (12:32)
[2020-05-28] MEDS: ATENOLOL 25 MG TABLET (FP) PO SCH (12:33)
[2020-05-28] MEDS: MULTIVITAMINS (DAILY MVI) TABLET (FP) PO SCH (12:33)
[2020-05-29] MEDS ORDERED: PT OWN MED DRAWER 7, Y5N ONE ×4 (02:21→21:08)
[2020-05-29] MEDS: AMPICILLIN NA/SULBACTAM NA 3 GM in SODIUM CHLORIDE 100 ML IVPB SCH ×4 (02:33→21:18)
[2020-05-29 08:03] LABS: BASO % 0.2 % (0-2.0); HEMOGLOBIN 7.2 GM/dL (11.7-16.9); MCH 29.1 pg (25.7-33.7); RBC 2.46 M/mm3 (4.00-5.60)
[2020-05-29 08:08] LABS: EOS % 0.3 % (0-4.5); HEMATOCRIT 21.3 % (35.4-49); LYMPH % 6.8 % (8-40); MCHC 33.7 g/dl (32.0-35.9); MEAN CELL VOLUME 86.3 fl (80-96); MEAN PLT VOLUME 7.1 fl (7.5-11.1); MONO % 6.7 % (3.8-10.2); PLATELET COUNT 232 K/MM3 (134-434); RDW 17.6 % (11.9-15.9); WHITE BLOOD COUNT 11.5 K/mm3 (4.0-10.0)
[2020-05-29 08:20] LABS: POTASSIUM 4.5 mmol/L (3.5-5.1)
[2020-05-29 08:23] LABS: ALBUMIN 2.5 g/dl (3.4-5.0); BLOOD UREA NITROGEN 34.2 mg/dL (7-18); CALCIUM 8.6 mg/dL (8.5-10.1)
[2020-05-29 08:26] LABS: CREATININE 0.9 mg/dL (0.55-1.3)
[2020-05-29 08:28] LABS: BILIRUBIN,TOTAL 1.1 mg/dL (0.2-1); TOT PROT 5.3 g/dl (6.4-8.2)
[2020-05-29] MEDS: FENOFIBRIC ACID 45 MG CAP PO SCH (09:07)
[2020-05-29] MEDS: AMINO ACIDS/PROTEIN HYDROLYS 30 ML LIQUID.PKT PO SCH ×2 (09:08→17:14)
[2020-05-29] MEDS: MULTIVITAMINS (DAILY MVI) TABLET (FP) PO SCH (09:08)
[2020-05-29] MEDS: PANTOPRAZOLE SODIUM 40 MG VIAL IVPUSH SCH (09:08)
[2020-05-29] MEDS: CYANOCOBALAMIN 1,000 MCG TABLET (FP) PO SCH (09:08)
[2020-05-29] MEDS: methylPREDNISolone NA SUCC 40 MG/1 ML VIAL IVPUSH SCH (09:09)
[2020-05-29] MEDS: ATENOLOL 25 MG TABLET (FP) PO SCH (09:14)
[2020-05-29] MEDS ORDERED: TRIMETHOBENZAMIDE HCL 200MG/2ML INJ IM ONE (10:30)
[2020-05-29] MEDS ORDERED: FUROSEMIDE 40 MG TABLET (FP) PO ONE (10:52)
[2020-05-30] MEDS ORDERED: PT OWN MED DRAWER 7, Y5N ONE ×5 (02:02→21:17)
[2020-05-30] MEDS: AMPICILLIN NA/SULBACTAM NA 3 GM in SODIUM CHLORIDE 100 ML IVPB SCH ×4 (02:06→21:29)
[2020-05-30] MEDS: AMINO ACIDS/PROTEIN HYDROLYS 30 ML LIQUID.PKT PO SCH ×2 (08:19→17:14)
[2020-05-30 08:26] LABS: BASO % 0.2 % (0-2.0); EOS % 0.4 % (0-4.5); HEMATOCRIT 21.5 % (35.4-49); HEMOGLOBIN 7.1 GM/dL (11.7-16.9); LYMPH % 6.4 % (8-40); MCH 28.8 pg (25.7-33.7); MCHC 32.9 g/dl (32.0-35.9); MEAN CELL VOLUME 87.5 fl (80-96); MONO % 6.5 % (3.8-10.2); NEUT % 86.5 % (42.8-82.8); PLATELET COUNT 216 K/MM3 (134-434); RBC 2.46 M/mm3 (4.00-5.60); RDW 17.9 % (11.9-15.9)
[2020-05-30 08:45] LABS: POTASSIUM 4.7 mmol/L (3.5-5.1)
[2020-05-30 08:47] LABS: ALBUMIN 2.6 g/dl (3.4-5.0); CALCIUM 8.6 mg/dL (8.5-10.1)
[2020-05-30 08:48] LABS: BLOOD UREA NITROGEN 33.4 mg/dL (7-18)
[2020-05-30 08:51] LABS: CREATININE 0.9 mg/dL (0.55-1.3); PHOSPHOROUS 3.1 mg/dL (2.5-4.9)
[2020-05-30 08:52] LABS: TOT PROT 5.4 g/dl (6.4-8.2)
[2020-05-30] MEDS: CYANOCOBALAMIN 1,000 MCG TABLET (FP) PO SCH (09:21)
[2020-05-30] MEDS: FENOFIBRIC ACID 45 MG CAP PO SCH (09:21)
[2020-05-30] MEDS: PANTOPRAZOLE SODIUM 40 MG VIAL IVPUSH SCH (09:21)
[2020-05-30] MEDS: MULTIVITAMINS (DAILY MVI) TABLET (FP) PO SCH (09:21)
[2020-05-30] MEDS: methylPREDNISolone NA SUCC 40 MG/1 ML VIAL IVPUSH SCH (09:21)
[2020-05-30] MEDS: ATENOLOL 25 MG TABLET (FP) PO SCH (09:21)
[2020-05-31] MEDS: AMPICILLIN NA/SULBACTAM NA 3 GM in SODIUM CHLORIDE 100 ML IVPB SCH (02:01)
[2020-05-31] MEDS ORDERED: PT OWN MED DRAWER 7, Y5N ONE ×2 (09:26→15:02)
[2020-05-31] MEDS: AMINO ACIDS/PROTEIN HYDROLYS 30 ML LIQUID.PKT PO SCH ×2 (09:47→17:38)
[2020-05-31] MEDS: PANTOPRAZOLE SODIUM 40 MG VIAL IVPUSH SCH (09:47)
[2020-05-31] MEDS: methylPREDNISolone NA SUCC 40 MG/1 ML VIAL IVPUSH SCH (09:48)
[2020-05-31] MEDS: TRIMETHOBENZAMIDE HCL 200MG/2ML INJ IM PRN (09:49)
[2020-05-31] MEDS: CYANOCOBALAMIN 1,000 MCG TABLET (FP) PO SCH (09:49)
[2020-05-31] MEDS: FENOFIBRIC ACID 45 MG CAP PO SCH (09:49)
[2020-05-31] MEDS: MULTIVITAMINS (DAILY MVI) TABLET (FP) PO SCH (09:49)
[2020-05-31] MEDS: ATENOLOL 25 MG TABLET (FP) PO SCH (09:49)
[2020-05-31 13:44] LABS: BASO % 0.1 % (0-2.0); EOS % 0.2 % (0-4.5); HEMATOCRIT 20.5 % (35.4-49); LYMPH % 5.7 % (8-40); MCH 28.9 pg (25.7-33.7); MCHC 32.8 g/dl (32.0-35.9); MEAN PLT VOLUME 7.2 fl (7.5-11.1); PLATELET COUNT 230 K/MM3 (134-434); RBC 2.33 M/mm3 (4.00-5.60); RDW 18.3 % (11.9-15.9); WHITE BLOOD COUNT 13.5 K/mm3 (4.0-10.0)
[2020-05-31 13:54] LABS: HEMOGLOBIN 6.7 GM/dL (11.7-16.9)
[2020-05-31] MEDS: FUROSEMIDE 20 MG TABLET (FP) PO SCH (15:41)
[2020-05-31 15:58] LABS: ALBUMIN 2.6 g/dl (3.4-5.0); BILIRUBIN,TOTAL 1.1 mg/dL (0.2-1); BLOOD UREA NITROGEN 38.4 mg/dL (7-18); CALCIUM 8.1 mg/dL (8.5-10.1); PHOSPHOROUS 3.3 mg/dL (2.5-4.9); TOT PROT 5.4 g/dl (6.4-8.2)
[2020-06-01 07:52] LABS: POTASSIUM 3.9 mmol/L (3.5-5.1)
[2020-06-01 07:56] LABS: EOS % 0.1 % (0-4.5); HEMATOCRIT 21.2 % (35.4-49); HEMOGLOBIN 7.1 GM/dL (11.7-16.9); LYMPH % 4.2 % (8-40); MCH 29.7 pg (25.7-33.7); MCHC 33.7 g/dl (32.0-35.9); MEAN CELL VOLUME 88.1 fl (80-96); MEAN PLT VOLUME 7.3 fl (7.5-11.1); MONO % 4.8 % (3.8-10.2); NEUT % 90.9 % (42.8-82.8); PLATELET COUNT 187 K/MM3 (134-434); RDW 18.1 % (11.9-15.9); WHITE BLOOD COUNT 13.5 K/mm3 (4.0-10.0)
[2020-06-01 08:02] LABS: CALCIUM 8.6 mg/dL (8.5-10.1)
[2020-06-01 08:03] LABS: ALBUMIN 2.5 g/dl (3.4-5.0); MAGNESIUM 2.1 mg/dL (1.8-2.4)
[2020-06-01 08:05] LABS: CREATININE 1.2 mg/dL (0.55-1.3)
[2020-06-01 08:06] LABS: PHOSPHOROUS 4.2 mg/dL (2.5-4.9)
[2020-06-01 08:07] LABS: BILIRUBIN,TOTAL 1.3 mg/dL (0.2-1); TOT PROT 5.2 g/dl (6.4-8.2)
[2020-06-01] MEDS ORDERED: PT OWN MED DRAWER 7, Y5N ONE ×2 (08:36→09:40)
[2020-06-01] MEDS: AMINO ACIDS/PROTEIN HYDROLYS 30 ML LIQUID.PKT PO SCH ×2 (08:58→16:53)
[2020-06-01] MEDS: TRIMETHOBENZAMIDE HCL 200MG/2ML INJ IM PRN (08:58)
[2020-06-01] MEDS: CYANOCOBALAMIN 1,000 MCG TABLET (FP) PO SCH (09:04)
[2020-06-01] MEDS: MULTIVITAMINS (DAILY MVI) TABLET (FP) PO SCH (09:04)
[2020-06-01] MEDS: ATENOLOL 25 MG TABLET (FP) PO SCH (09:04)
[2020-06-01] MEDS: FUROSEMIDE 20 MG TABLET (FP) PO SCH (09:04)
[2020-06-01] MEDS: methylPREDNISolone NA SUCC 40 MG/1 ML VIAL IVPUSH SCH (09:04)
[2020-06-01] MEDS: PANTOPRAZOLE SODIUM 40 MG VIAL IVPUSH SCH (09:05)
[2020-06-01] MEDS: FENOFIBRIC ACID 45 MG CAP PO SCH (09:50)
[2020-06-01] MEDS: MORPHINE SULFATE 2 MG/ML VIAL IVPUSH PRN (13:45)
[2020-06-02] MEDS: AMINO ACIDS/PROTEIN HYDROLYS 30 ML LIQUID.PKT PO SCH ×2 (08:06→17:23)
[2020-06-02] MEDS: TRIMETHOBENZAMIDE HCL 200MG/2ML INJ IM PRN (08:25)
[2020-06-02] MEDS ORDERED: PT OWN MED DRAWER 7, Y5N ONE (09:25)
[2020-06-02] MEDS: methylPREDNISolone NA SUCC 40 MG/1 ML VIAL IVPUSH SCH (10:43)
[2020-06-02] MEDS: ATENOLOL 25 MG TABLET (FP) PO SCH (10:43)
[2020-06-02] MEDS: FUROSEMIDE 20 MG TABLET (FP) PO SCH (10:43)
[2020-06-02] MEDS: CYANOCOBALAMIN 1,000 MCG TABLET (FP) PO SCH (10:43)
[2020-06-02] MEDS: PANTOPRAZOLE SODIUM 40 MG VIAL IVPUSH SCH (10:43)
[2020-06-02] MEDS: FENOFIBRIC ACID 45 MG CAP PO SCH (10:43)
[2020-06-02] MEDS: MULTIVITAMINS (DAILY MVI) TABLET (FP) PO SCH (10:43)
[2020-06-02] MEDS: MORPHINE SULFATE 2 MG/ML VIAL IVPUSH PRN (15:19)
[2020-06-03] MEDS: AMINO ACIDS/PROTEIN HYDROLYS 30 ML LIQUID.PKT PO SCH ×2 (09:31→17:17)
[2020-06-03] MEDS: methylPREDNISolone NA SUCC 40 MG/1 ML VIAL IVPUSH SCH (09:59)
[2020-06-03] MEDS: MULTIVITAMINS (DAILY MVI) TABLET (FP) PO SCH (10:00)
[2020-06-03] MEDS: ATENOLOL 25 MG TABLET (FP) PO SCH (10:00)
[2020-06-03] MEDS: CYANOCOBALAMIN 1,000 MCG TABLET (FP) PO SCH (10:00)
[2020-06-03] MEDS: FENOFIBRIC ACID 45 MG CAP PO SCH (10:00)
[2020-06-03] MEDS: PANTOPRAZOLE SODIUM 40 MG VIAL IVPUSH SCH (10:00)
[2020-06-03] MEDS: FUROSEMIDE 20 MG TABLET (FP) PO SCH (10:00)
[2020-06-03] MEDS: PORTA CATH FLUSH 10 ML IVPUSH PRN (10:01)
[2020-06-03] MEDS: MORPHINE SULFATE 2 MG/ML VIAL IVPUSH PRN (10:05)
[2020-06-04] MEDS: MORPHINE SULFATE 2 MG/ML VIAL IVPUSH PRN ×3 (05:45→17:34)
[2020-06-04] MEDS: AMINO ACIDS/PROTEIN HYDROLYS 30 ML LIQUID.PKT PO SCH ×2 (08:46→17:16)
[2020-06-04] MEDS ORDERED: PT OWN MED DRAWER 7, Y5N ONE (10:04)
[2020-06-04] MEDS: PANTOPRAZOLE SODIUM 40 MG VIAL IVPUSH SCH (10:10)
[2020-06-04] MEDS: MULTIVITAMINS (DAILY MVI) TABLET (FP) PO SCH (10:13)
[2020-06-04] MEDS: CYANOCOBALAMIN 1,000 MCG TABLET (FP) PO SCH (10:13)
[2020-06-04] MEDS: FUROSEMIDE 20 MG TABLET (FP) PO SCH (10:13)
[2020-06-04] MEDS: FENOFIBRIC ACID 45 MG CAP PO SCH (10:13)
[2020-06-04] MEDS: methylPREDNISolone NA SUCC 40 MG/1 ML VIAL IVPUSH SCH (10:13)
[2020-06-04] MEDS: ATENOLOL 25 MG TABLET (FP) PO SCH (10:14)
[2020-06-04 18:46] LABS: HEMATOCRIT 19.5 % (35.4-49); MCHC 31.4 g/dl (32.0-35.9); MEAN CELL VOLUME 92.2 fl (80-96); MEAN PLT VOLUME 8.2 fl (7.5-11.1); PLATELET COUNT 114 K/MM3 (134-434); RBC 2.11 M/mm3 (4.00-5.60); RDW 20.6 % (11.9-15.9); WHITE BLOOD COUNT 13.2 K/mm3 (4.0-10.0)
[2020-06-04 18:47] LABS: HEMOGLOBIN 6.1 GM/dL (11.7-16.9)
[2020-06-04 19:04] LABS: POTASSIUM 4.8 mmol/L (3.5-5.1)
[2020-06-04 19:07] LABS: CALCIUM 8.3 mg/dL (8.5-10.1)
[2020-06-04 19:08] LABS: ALBUMIN 2.4 g/dl (3.4-5.0)
[2020-06-04 19:11] LABS: CREATININE 2.6 mg/dL (0.55-1.3)
[2020-06-04 19:12] LABS: BILIRUBIN,TOTAL 1.1 mg/dL (0.2-1); TOT PROT 5.1 g/dl (6.4-8.2)
[2020-06-04 19:22] LABS: BLOOD UREA NITROGEN 96.7 mg/dL (7-18)
[2020-06-05 07:50] LABS: POTASSIUM 4.6 mmol/L (3.5-5.1)
[2020-06-05 08:09] LABS: ALBUMIN 2.2 g/dl (3.4-5.0); BLOOD UREA NITROGEN 91.1 mg/dL (7-18)
[2020-06-05 08:12] LABS: CREATININE 2.4 mg/dL (0.55-1.3)
[2020-06-05 08:14] LABS: BILIRUBIN,TOTAL 1.1 mg/dL (0.2-1); TOT PROT 4.7 g/dl (6.4-8.2)
[2020-06-05 08:16] LABS: BASO % 0.1 % (0-2.0); EOS % 0.1 % (0-4.5); HEMATOCRIT 21.2 % (35.4-49); LYMPH % 4.1 % (8-40); MCH 29.2 pg (25.7-33.7); MCHC 32.4 g/dl (32.0-35.9); MEAN PLT VOLUME 8.3 fl (7.5-11.1); MONO % 4.1 % (3.8-10.2); NEUT % 91.6 % (42.8-82.8); PLATELET COUNT 89 K/MM3 (134-434); RBC 2.35 M/mm3 (4.00-5.60); RDW 18.3 % (11.9-15.9)
[2020-06-05 08:48] LABS: HEMOGLOBIN 6.9 GM/dL (11.7-16.9)
[2020-06-05] MEDS: FENOFIBRIC ACID 45 MG CAP PO SCH (09:37)
[2020-06-05] MEDS: methylPREDNISolone NA SUCC 40 MG/1 ML VIAL IVPUSH SCH (09:37)
[2020-06-05] MEDS: MULTIVITAMINS (DAILY MVI) TABLET (FP) PO SCH (09:37)
[2020-06-05] MEDS: CYANOCOBALAMIN 1,000 MCG TABLET (FP) PO SCH (09:37)
[2020-06-05 09:38] LABS: ANISOCYTOSIS 2+; MACROCYTOSIS 1+; PLATELET ESTIMATE DECREASED
[2020-06-05] MEDS: AMINO ACIDS/PROTEIN HYDROLYS 30 ML LIQUID.PKT PO SCH ×2 (09:38→17:32)
[2020-06-05] MEDS: PANTOPRAZOLE SODIUM 40 MG VIAL IVPUSH SCH (09:38)
[2020-06-05] MEDS: ATENOLOL 25 MG TABLET (FP) PO SCH (09:38)
[2020-06-05] MEDS: PORTA CATH FLUSH 10 ML IVPUSH PRN (22:07)
[2020-06-06 07:07] LABS: HEMATOCRIT 22.5 % (35.4-49); HEMOGLOBIN 7.4 GM/dL (11.7-16.9); MCH 29.6 pg (25.7-33.7); MCHC 32.9 g/dl (32.0-35.9); MEAN PLT VOLUME 8.3 fl (7.5-11.1); PLATELET COUNT 80 K/MM3 (134-434); RDW 17.6 % (11.9-15.9); WHITE BLOOD COUNT 11.3 K/mm3 (4.0-10.0)
[2020-06-06 07:28] LABS: POTASSIUM 4.6 mmol/L (3.5-5.1)
[2020-06-06 07:37] LABS: BLOOD UREA NITROGEN 86.4 mg/dL (7-18); MAGNESIUM 2.2 mg/dL (1.8-2.4)
[2020-06-06 07:40] LABS: CREATININE 1.8 mg/dL (0.55-1.3); PHOSPHOROUS 3.3 mg/dL (2.5-4.9)
[2020-06-06] MEDS: AMINO ACIDS/PROTEIN HYDROLYS 30 ML LIQUID.PKT PO SCH ×2 (08:52→17:23)
[2020-06-06] MEDS: FENOFIBRIC ACID 45 MG CAP PO SCH (10:53)
[2020-06-06] MEDS: MULTIVITAMINS (DAILY MVI) TABLET (FP) PO SCH (10:53)
[2020-06-06] MEDS: methylPREDNISolone NA SUCC 40 MG/1 ML VIAL IVPUSH SCH (10:53)
[2020-06-06] MEDS: ATENOLOL 25 MG TABLET (FP) PO SCH (10:53)
[2020-06-06] MEDS: CYANOCOBALAMIN 1,000 MCG TABLET (FP) PO SCH (10:53)
[2020-06-06] MEDS: PANTOPRAZOLE SODIUM 40 MG VIAL IVPUSH SCH (10:53)
[2020-06-06] MEDS ORDERED: MORPHINE SULFATE 2 MG/ML VIAL IVPUSH PRN (16:17)
[2020-06-07] MEDS: FENOFIBRIC ACID 45 MG CAP PO SCH (10:33)
[2020-06-07] MEDS: methylPREDNISolone NA SUCC 40 MG/1 ML VIAL IVPUSH SCH (10:33)
[2020-06-07] MEDS: AMINO ACIDS/PROTEIN HYDROLYS 30 ML LIQUID.PKT PO SCH ×2 (10:34→17:06)
[2020-06-07] MEDS: ATENOLOL 25 MG TABLET (FP) PO SCH (10:34)
[2020-06-07] MEDS: MULTIVITAMINS (DAILY MVI) TABLET (FP) PO SCH (10:34)
[2020-06-07] MEDS: CYANOCOBALAMIN 1,000 MCG TABLET (FP) PO SCH (10:34)
[2020-06-07] MEDS: PANTOPRAZOLE SODIUM 40 MG VIAL IVPUSH SCH (10:34)
[2020-06-07 13:59] VITALS: BP 110/55; PULSE 78; TEMP 98.3
== END 2020-06-07 23:20 | disposition hospice, inpatient (51) | DRG 189 ==
LOC: JER 14:44 → JERBED 19:37 → JICU 20:46 → J4S 05-23 23:44
PROVIDERS: ADMIT Internal Medicine Pulmonary Disease; ATTEND Internal Medicine
PROC: 30233N1 Transfusion of Nonautologous Red Blood Cells into Peripheral Vein, Percutaneous Approach (ICD-10-PCS; 2020-05-14)
PROC: 0W9G3ZX Drainage of Peritoneal Cavity, Percutaneous Approach, Diagnostic (ICD-10-PCS; 2020-05-15)
PROC: 0W9930Z Drainage of Right Pleural Cavity with Drainage Device, Percutaneous Approach (ICD-10-PCS; principal; 2020-05-16)
PROC: 0W9B30Z Drainage of Left Pleural Cavity with Drainage Device, Percutaneous Approach (ICD-10-PCS; 2020-05-17)
PROC: 0JH63XZ Insertion of Tunneled Vascular Access Device into Chest Subcutaneous Tissue and Fascia, Percutaneous Approach (ICD-10-PCS; 2020-06-04)
DX: J96.01 Acute respiratory failure with hypoxia (principal); J15.6 Pneumonia due to other Gram-negative bacteria; J90 Pleural effusion, not elsewhere classified; I50.32 Chronic diastolic (congestive) heart failure; R04.2 Hemoptysis; C79.89 Secondary malignant neoplasm of other specified sites; S27.0XXA Traumatic pneumothorax, initial encounter; N17.9 Acute kidney failure, unspecified; N13.30 Unspecified hydronephrosis; C49.4 Malignant neoplasm of connective and soft tissue of abdomen; Z68.41 Body mass index [BMI] 40.0-44.9, adult; J94.2 Hemothorax; I10 Essential (primary) hypertension; G62.9 Polyneuropathy, unspecified; D63.0 Anemia in neoplastic disease; Z85.46 Personal history of malignant neoplasm of prostate; E66.01 Morbid (severe) obesity due to excess calories; G47.33 Obstructive sleep apnea (adult) (pediatric); T14.90XA Injury, unspecified, initial encounter; X58.XXXA Exposure to other specified factors, initial encounter; Y93.9 Activity, unspecified; Y92.89 Other specified places as the place of occurrence of the external cause; Y99.9 Unspecified external cause status
CPT/HCPCS: 32550; 36415; 36430; 36511; 36600; 71045-TC-FY; 71250-TC; 71275-TC; 74174-TC; 80048; 80053; 80061; 81003; 82042; 82150; 82248; 82272; 82436; 82465; 82550; 82570; 82728; 82803; 82945; 83010; 83540; 83550; 83605; 83615; 83721; 83735; 83880; 83935; 83986; 84100; 84156; 84157; 84300; 84443; 84466; 84478; 84484; 84560; 85025; 85027; 85045; 85379; 85610; 85651; 85730; 86038; 86140; 86769; 86850; 86900; 86901; 86922; 87040; 87070; 87075; 87086; 87116; 87186; 87205; 87206; 87804; 87899; 88108; 88305-TC; 88341-TC; 93005; 93010; 93306-TC; 93970-TC; 94010; 94660; 97116-GP; 97161-GP; 99285-25; C1729; C1769; C1894; C9803; J1100; J1644; P9016; P9038; P9058; Q9967; U0003